=== PATIENT | male | born 1995 | race Caucasian/White ===

== ENCOUNTER 2016-04-16 19:46 | Emergency (ER) | payer BC ==
[2016-04-16 20:05] VITALS: BP 124/56
[2016-04-16] MEDS ORDERED: LORazepam 0.5 MG Tab PO ONE (20:32)
--- NOTE | 2016-04-16 21:10 | EDM.PDOC ---
ED HPI Behavioral Health - General Chief Complaint: Behavioral/Psych Stated Complaint: SOB/NEW MEDICATION Time Seen by Provider: 04/16/16 20:55 Source of Information: Reports: Patient Exam Limitations: Reports: No limitations - History of Present Illness INITIAL COMMENTS - FREE TEXT/NARRATIVE: patient presents with increased anxiety as well as concerns of urinary retention. He was recently seen by his PCP this past monday, and decision to change medication from effexor to lexapro was made to help with anxiety as he felt the effexor was no longer working. He reports he feels his anxiety worsens due to his history of ongoing urinary frequency and urgency which he has now had for year. He states UA have previously been negative for infection, he has been tested for STD's previously, has no concerns. He reports a bladder scan has been done this past week and was normal. He does not drink excess caffeine, reportedly 1 cup of coffee in the morning. He does use marijuana with regular use. He denies any burning with urination. He was recently started on tolterodine for overactive bladder, but doesn't think it's helping. He denies any thoughts of depression or suicidal ideations. He has otherwise only been treated for zoloft for his anxiety, stating that didn't help at all. He does report recent increase in stress with school, stating that does seem to make his urinary symptoms more prominent. He denies any blood in the urine, discharge from the penis, testicular, or scrotal pain, and other than decreased libido, no ED concerns. Context, Behavioral Health: Reports: school/work Associated Symptoms: Reports: anxiety Treatments CANDLE WICKER: Reports: Other medication(s) - SAD Persons Scale (SPS) SPS Sex: Male SPS Age: Between 18-65 Years of Age SPS Depression: No SPS Previous Suicide Attempts: No SPS Alcohol Abuse/Drug Abuse: Yes SPS Rational Thinking Loss: No SPS Social Support Deficit: No SPS Organized Suicide Plan: No SPS No Spouse/Significant Other: No SPS Sickness: No SPS Sad Person Scale Score: 2 - Related Data Allergies Allergy/AdvReac Type Severity Reaction Status Date / Time No Known Allergies Allergy Verified 04/16/16 19:56 Home Medications: Home Meds ALPRAZolam [Alprazolam ER] 0.5 mg PO BID #10 tab.er.24h 04/16/16 [Rx] Escitalopram [Lexapro] 20 mg PO DAILY 04/16/16 [History] Meloxicam 7.5 mg PO BID #30 tablet 04/16/16 [Rx] Lower Abdominal Pain Score (Numeric/FACES): 7 Past Medical History - Past Health History Medical/Surgical History: Denies Medical/Surgical History Psychiatric History: Reports: Anxiety, Depression, OCD - Infectious Disease History Infectious Disease History: Reports: None Social & Family History - Family History Family Medical History: Noncontributory - Tobacco Use Smoking Status *Q: Never Smoker Second Hand Smoke Exposure: No - Caffeine Use Caffeine Use: Reports: Coffee - Alcohol Use Days Per Week of Alcohol Use: 4 Number of Drinks Per Day: 2 Total Drinks Per Week: 8 Date of Last Drink: 04/16/16 Time of Last Drink: 16:00 - Recreational Drug Use Recreational Drug Use: Yes Drug Use in Last 12 Months: Yes Recreational Drug Type: Reports: Marijuana/Hashish Recreational Drug Use Frequency: Daily - Living Situation & Occupation Living situation: Reports: single Occupation: student ED ROS GENERAL - Review of Systems Review Of Systems: ROS reveals no pertinent complaints other than HPI. Constitutional: Denies: fever, chills Respiratory: Reports: no symptoms Cardiovascular: Reports: No symptoms GI/Abdominal: Reports: No symptoms. Denies: Abdominal pain, Constipation, Diarrhea : Reports: frequency, urgency, urinary retention. Denies: dysuria, flank pain , hematuria, incontinence, pain Psychiatric: Reports: Anxiety, Other (reports OCD) ED EXAM, BEHAVIORAL HEALTH - Physical Exam Exam: See Below Exam Limited By: No limitations General Appearance: alert, WD/WN, anxious Throat/Mouth: Normal oropharynx Respiratory/Chest: lungs clear, normal breath sounds Cardiovascular: regular rate, rhythm, no murmur GI/Abdominal: normal bowel sounds, soft, non tender Psychiatric: alert, normal affect Skin Exam: Warm, Dry COURSE, BEHAVIORAL HEALTH COMP - Course Vital Signs: Last Vital Signs Temp 97.4 F 04/16/16 19:58 Pulse 68 04/16/16 19:58 Resp 12 04/16/16 19:58 BP 124/56 L 04/16/16 19:58 Pulse Ox 99 04/16/16 19:58 2105 Discussed normal UA results with patient. plan to treat for acute anxiety and trial of NSAID for urinary urgency and f/u with urology as planned. Orders, Labs, Meds: Laboratory Tests 04/16/16 Range/Units 20:15 Urine Color Yellow (Yellow) Urine Appearance Clear (Clear) Urine pH 6.0 (5.0-8.0) Ur Specific Mckean 1.020 (1.005-1.030) Urine Protein Negative (Negative) Urine Glucose (UA) Negative (Negative) Urine Ketones Negative (Negative) Urine Occult Blood Negative (Negative) Urine Nitrite Negative (Negative) Urine Bilirubin Negative (Negative) Urine Urobilinogen 0.2 (0.2-1.0) Ur Leukocyte Esterase Negative (Negative) Urine RBC 0-5 (0-5) /hpf Urine WBC 0-5 (0-5) /hpf Ur Squamous Epith Cells 0-5 (0-5) /hpf Urine Bacteria Not seen (FEW) /hpf Urine Mucus Not seen (FEW) /hpf Medications Discontinued Medications Generic Name Dose Route Start Last Admin Trade Name Freq PRN Reason Stop Dose Admin Lorazepam 0.5 mg 04/16/16 20:32 04/16/16 20:45 Ativan PO 04/16/16 20:33 0.5 mg ONETIME ONE Administration Departure - Departure Time of Disposition: 21:05 Disposition: Home, Self-Care 01 Condition: good Clinical Impression: History of urinary urgency Prescriptions: ALPRAZolam [Alprazolam ER] 0.5 mg PO BID #10 tab.er.24h Meloxicam 7.5 mg PO BID #30 tablet Referrals: Erica Dominguez NP [Primary Care Provider] - Forms: ED Department Discharge Additional Instructions: urinalysis did not show any acute findings. Plan to keep appointment with urology for next week for ongoing concerns of urinary frequency. Increase water intake, avoid caffeine. Limit marijuana use. will treat with meloxicam, take twice daily with food. Alprazolam given to take twice daily for acute anxiety. This medication may cause drowsiness, so do not take if you have to work or drive until you know how it will affect you. Continue on lexapro as directed. Followup with your PCP if symptoms persist, and don't hesitate to return to ED as needed.
== END 2016-04-16 21:25 | disposition home or self-care (01) ==
LOC: JD.ED 19:46
DX: R33.9 Retention of urine, unspecified (principal); F41.8 Other specified anxiety disorders; Z79.899 Other long term (current) drug therapy
CPT/HCPCS: 81001; 99283; A9270